=== PATIENT | male | born 1960 | race Caucasian/White ===

== ENCOUNTER 2022-03-24 06:16 | Inpatient (IN) ==
[~2022-03-24 06:16] MED LIST: Famotidine 20 MG/2 ML VIAL IVP ONE; Ringers Solution, Lactated 1,000 ML IVC ONE
[2022-03-24] MEDS ORDERED: Acetaminophen IV 1,000 MG/100 ML BAG IVPB ONE (06:44)
[2022-03-24] MEDS ORDERED: CeFAZolin Syr 2,000MG/20 ML 2,000 MG/20 ML SYRINGE IVPB ONE (06:46)
[2022-03-24] MEDS ORDERED: Vancomycin 1,250 MG/262.5 ML IV.SOLN IVPB ONE ×2 (07:00→16:00)
[2022-03-24] MEDS ORDERED: Heparin 1,000 UNITS/500 mL 0 ML ONE (07:07)
[2022-03-24] MEDS ORDERED: Bupivacaine-MPF 0.25% 10 ML VIAL ONE (07:07)
[2022-03-24] MEDS ORDERED: Heparin 1,000 UNITS/500 mL 2,500 ML ONE (07:07)
[2022-03-24] MEDS ORDERED: *HR* Heparin 5,000 UNIT/ML VIAL ONE ×2 (07:07→10:44)
[2022-03-24] MEDS ORDERED: Lidocaine HCL 4 ML Topical Solution (Laryng-O-Jet Kit Sterile Pak) TP ONE (07:07)
[2022-03-24] MEDS ORDERED: Vancomycin 1,000 MG VIAL ONE (07:08)
[2022-03-24] MEDS ORDERED: Protamine Sulfate 50 MG/5 ML VIAL IVP ONE (07:08)
[2022-03-24] MEDS ORDERED: Iopamidol - 300 50 ML VIAL ONE (07:08)
[2022-03-24] MEDS ORDERED: Ondansetron 4 MG/2 ML VIAL ONE (07:14)
[2022-03-24] MEDS ORDERED: Lidocaine -MPF 2% 5 ML VIAL ONE (07:14)
[2022-03-24] MEDS ORDERED: *HR* HYDROMORPHONE 2 MG/ML VIAL ONE (07:14)
[2022-03-24] MEDS ORDERED: *HR* Propofol 200 MG/20 ML VIAL IVP ONE (07:14)
[2022-03-24] MEDS ORDERED: *HR* Midazolam HCl 2 MG/2 ML VIAL ONE (07:14)
[2022-03-24] MEDS ORDERED: Sugammadex Sodium 200 MG/2 ML VIAL IV ONE (07:14)
[2022-03-24] MEDS ORDERED: *HR* Phenylephrine 10 MG/ML VIAL ONE (07:15)
[2022-03-24] MEDS ORDERED: *HR* Remifentanil 2 MG VIAL IVP ONE (07:15)
[2022-03-24] MEDS ORDERED: *HR* Rocuronium Bromide 50 MG/5 ML VIAL ONE ×2 (07:17→08:54)
[2022-03-24] MEDS ORDERED: *HR* Succinylcholine 200 MG/10 ML VIAL IVP ONE (07:17)
[2022-03-24] MEDS ORDERED: EPHEDrine 50 MG/ML VIAL ONE (07:18)
[2022-03-24] MEDS ORDERED: *HR* Vasopressin 20 UNIT/ML VIAL ONE (07:25)
[2022-03-24] MEDS ORDERED: Albuterol 2.5 MG/3 ML NEBULIZER IH PRN (07:42)
[2022-03-24] MEDS ORDERED: Naloxone 0.4 MG/ML INJ IVP PRN ×2 (07:42→15:24)
[2022-03-24] MEDS ORDERED: *HR* FentaNYL (PF) 100 MCG/2 ML VIAL IVP PRN (07:42)
[2022-03-24] MEDS ORDERED: Ondansetron 4 MG/2 ML VIAL IVP PRN (07:42)
[2022-03-24] MEDS ORDERED: Nitroglycerin 0.4 MG TAB.SUBL SL PRN (07:42)
[2022-03-24] MEDS ORDERED: Vancomycin 1,000 MG, Sodium Chloride IRRigation 1,000 ML IR ONE (07:45)
[2022-03-24] MEDS ORDERED: *HR* Remifentanil 1 MG VIAL IVP ONE (10:35)
[2022-03-24] MEDS ORDERED: Iopamidol - 300 100 ML INFUS..BTL ONE (10:48)
[2022-03-24] MEDS ORDERED: 0.9 % Sodium Chloride 1,000 ML IVC SCH (15:24)
[2022-03-24] MEDS ORDERED: *HR* OxyCODONE Immed Rel 5 MG TABLET PO PRN (15:24)
[2022-03-24] MEDS ORDERED: *HR* Dextrose 50 % in Water (Syg) 50 ML SYRINGE IVP PRN (15:24)
[2022-03-24] MEDS ORDERED: Acetaminophen 325 MG TABLET PO PRN (15:24)
[2022-03-24] MEDS ORDERED: *HR* Labetalol 20 MG/4 ML SYRINGE IVP PRN (15:24)
[2022-03-24] MEDS ORDERED: Dextrose Gel 15 GM/37.5 ML TUBE PO PRN ×2 (15:24)
[2022-03-24] MEDS ORDERED: *HR* HYDROcodone/Acet 5/325 mg TABLET PO PRN (15:24)
[2022-03-24] MEDS ORDERED: D5% in Water 1,000 ML IVC PRN (15:24)
[2022-03-24] MEDS: Insulin LISPRO 300 UNITS/3 ML VIAL SUBQ SCH (16:50)
[2022-03-24] MEDS: CeFAZolin 2 GM/120 ML BAG IVPB SCH (18:26)
[2022-03-24] MEDS: *HR* Metoprolol 5 MG/5 ML VIAL IVP SCH ×2 (18:32→23:25)
[2022-03-24] MEDS ORDERED: Insulin LISPRO 300 UNITS/3 ML VIAL SUBQ SCH (21:00)
[2022-03-25] MEDS: CeFAZolin 2 GM/120 ML BAG IVPB SCH (03:15)
[2022-03-25 05:33] LABS: Basophils % 0.2 %; Hematocrit 36.1 % (37.5-50.1); Immature Granulocytes % 0.4 % (0-4); Lymphocytes # 1.6 K/mcL (0.6-4.6); Lymphocytes % 9.8 %; Mean Corpuscular HGB Conc 33.2 g/dL (31.6-35.5); Mean Corpuscular Hemoglobin 28.9 pg (28.0-33.3); Mean Platelet Volume 10.3 fL (9.4-12.4); Monocytes # 1.5 K/mcL (0.0-1.3); Monocytes % 9.1 %; Platelet Count 179 K/mcL (140-400); Red Blood Count 4.15 M/mcL (4.19-5.50); Red Cell Distribution Width 13.5 % (11.5-14.5); Segmented Neutrophils % 80.5 %
[2022-03-25 05:34] LABS: Neutrophils # 12.9 K/mcL (1.6-8.9)
[2022-03-25 05:50] LABS: BUN/Creatinine Ratio 18 (6-26); Blood Urea Nitrogen 17 mg/dL (8-23); Calcium 8.3 mg/dL (8.6-10.3); Carbon Dioxide 26 mEq/L (23-29); Chloride 103 mEq/L (98-107); Glucose 168 mg/dL (70-105); Osmolality,Calculated 291 (280-300); Potassium 3.4 mEq/L (3.5-5.1); Sodium 138 mEq/L (136-145)
[2022-03-25] MEDS ORDERED: *HR* Heparin 5,000 UNIT/ML VIAL SQ SCH ×2 (06:00)
[2022-03-25] MEDS: *HR* Metoprolol 5 MG/5 ML VIAL IVP SCH (06:08)
[2022-03-25 07:30] VITALS: TEMP 97.8
[2022-03-25] MEDS: Insulin LISPRO 300 UNITS/3 ML VIAL SUBQ SCH (08:13)
[2022-03-25] MEDS ORDERED: Multivit/Ca/Min/Fe/FA 1 TAB TABLET PO SCH (09:00)
[2022-03-25] MEDS ORDERED: NON-FORMULARY MEDICATION 1 EACH EACH (Cinnamon Bark [Cinnamon] 500 MG Capsule) PO SCH (09:00)
[2022-03-25 09:52] VITALS: BP 146/78; O2SAT 97
[2022-03-25 09:56] VITALS: PULSE 46
== END 2022-03-25 10:39 | disposition home or self-care (01) | DRG 271 ==
LOC: SAMDAY 06:16 → 2NNU 07:48
PROVIDERS: ADMIT Surgery; ATTEND Surgery